=== PATIENT | male | born 1965 | race Caucasian/White ===

== ENCOUNTER 2017-11-24 12:44 | Outpatient (CLI) | payer OTHER | END 2017-11-24 12:45 | disposition home or self-care (01) | LOC: EMS 12:44 | PROVIDERS: ATTEND Surgery | DX: M54.5 Low back pain (principal) | CPT/HCPCS: A0425; A0429 ==

== ENCOUNTER 2017-11-24 13:20 | Emergency (ER) | payer OTHER ==
--- NOTE | 2017-11-24 14:24 | ED Physician Documentation ---
PD HPI BACK INJURY - Stated complaint Stated Complaint: BACK PX - History obtained from History obtained from: Patient, Other (coworker is helping with some translation, with consent of the patient.) - History of Present Illness Location: Right Type of injury: Other (heavy lifting with abrupt onset of pain). No: Fall, Twist Where injury occurred: Work Timing - onset: Today Timing - details: Abrupt onset Quality: Pain, Spasm Worsened by: Moving, Palpating Associated symptoms: No: Fever, Weakness, Numbness, Incontinent of urine Similar symptoms before: Diagnosis (prior problems with back pain and subsequent laminectomy; but then has been good without restricted back use.) Recently seen: Not recently seen Review of Systems Constitutional: denies: Fever, Chills, Myalgias GI: denies: Abdominal Pain Skin: denies: Rash, Lesions Musculoskeletal: reports: Back pain Neurologic: denies: Focal weakness, Numbness PD PAST MEDICAL HISTORY - Past Medical History Cardiovascular: None Respiratory: None Neuro: None Endocrine/Autoimmune: None Musculoskeletal: Chronic back pain (had prior laminectomy with good ROM of the back and use subsequently. ) - Past Surgical History Ortho: Spine surgery - Present Medications Home Medications: Ambulatory Orders Medication Instructions Recorded Confirmed HYDROcod/ACETAM 5/325 [Barnet 5/325] 1 tab PO Q6H PRN #20 tablet 11/24/17 Methocarbamol [Robaxin] 500 mg PO Q6H PRN #25 tablet 11/24/17 Naproxen [Naprosyn] 500 mg PO BID PRN #20 tablet 11/24/17 - Allergies Allergies/Adverse Reactions: Allergies Allergy/AdvReac Type Severity Reaction Status Date / Time No Known Drug Allergies Allergy Verified 11/24/17 13:38 Results - Vitals Vitals: Vital Signs - 24 hr 11/24/17 13:36 Temperature 36.4 C L Heart Rate 66 Respiratory 22 Rate Blood Pressure 178/96 H O2 Saturation 96 Oxygen O2 Source Room air - Rads (name of study) lumbar CT Radiology: Prelim report reviewed (prior hemilaminectomy. No acute fractures. ) PD MEDICAL DECISION MAKING - ED course Complexity details: reviewed results, considered differential, d/w patient Departure - Departure Disposition: 01 Home, Self Care Clinical Impression: Acute lumbar myofascial strain Qualifiers: Encounter type: initial encounter Qualified Code(s): S39.012A - Strain of muscle, fascia and tendon of lower back, initial encounter Condition: Stable Record reviewed to determine appropriate education?: Yes Instructions: ED Sprain Strain Lumbar Follow-Up: [facility] [Provider Group] Prescriptions: HYDROcod/ACETAM 5/325 [Barnet 5/325] 1 tab PO Q6H PRN #20 tablet PRN Reason: Pain Methocarbamol [Robaxin] 500 mg PO Q6H PRN #25 tablet PRN Reason: Spasms Naproxen [Naprosyn] 500 mg PO BID PRN #20 tablet PRN Reason: Pain Print Language: Croatian Comments: No heavy lifting for several days to week. Naproxen twice daily for the next 7- 10 days. Robaxin for muscle stiffness and spasms. Add Tylenol or hydrocodone if needed for pains. Recheck if not improved over the next week. Follow-up with orthopedic clinic if not improved into next week, call for an appointment. Forms: Activity restrictions Discharge Date/Time: 11/24/17 16:05
[2017-11-24] MEDS ORDERED: IBUPROFEN 600 MG TABLET PO STA (14:42)
[2017-11-24] MEDS ORDERED: METHOCARBAMOL 500 MG TABLET PO STA (14:42)
[2017-11-24] MEDS ORDERED: HYDROcod/ACETAM 5/325 MG TABLET PO STA ×2 (14:43→15:35)
--- NOTE | 2017-11-24 15:41 | CT Report ---
Reason: abrupt low back pain with sciatica while lifting Procedure Date: 11/24/2017 Accession Number: [id number] / [id number] Procedure: CT - Lumbar Spine W/O CPT Code: FULL RESULT: EXAM: CT LUMBAR SPINE WITHOUT CONTRAST EXAM DATE: 11/24/2017 03:03 PM. CLINICAL HISTORY: Abrupt low back pain with sciatica while lifting. COMPARISONS: None. TECHNIQUE: Thin-section axial images were acquired of the lumbar spine from T12 to S1 without contrast. Post-processing: Coronal and sagittal reformats. Other: None. In accordance with CT protocol optimization, one or more of the following dose reduction techniques were utilized for this exam: automated exposure control, adjustment of mA and/or KV based on patient size, or use of iterative reconstructive technique. FINDINGS: Alignment: There is no subluxation or scoliosis. Bones: Five [id number] lumbar vertebral bodies are present. No fractures or bone lesions. Disk Levels/Facets: T12-L1: Unremarkable. L1-L2: Unremarkable. L2-L3: Unremarkable. L3-L4: Unremarkable. L4-L5: There is mild disk height loss at L4-L5. There is asymmetric right far lateral soft tissue thickening with evidence of right L4-L5 foraminal narrowing. There are findings of previous surgery at this level with absent right L4-L5 facet. No significant central spinal canal narrowing. L5-S1: Mild disk height loss and disk osteophyte spurring without significant stenosis. Musculature: Normal. No fatty atrophy. Other: Abdominal aorta is normal in caliber. IMPRESSION: 1. No acute fracture or subluxation. 2. Findings of previous right L4-L5 hemilaminectomy with soft tissue thickening at the right L4-L5 far lateral space which may be postoperative versus sequela of disk extrusion. [facility]
[2017-11-24 16:05] VITALS: BP 152/84
== END 2017-11-24 16:05 | disposition home or self-care (01) ==
LOC: ED 13:20
DX: S39.012A Strain of muscle, fascia and tendon of lower back, initial encounter (principal); X50.0XXA Overexertion from strenuous movement or load, initial encounter; Y99.0 Civilian activity done for income or pay
CPT/HCPCS: 72131; 99283; A9270